=== PATIENT | female | born 1995 | race African-American/Black ===

== ENCOUNTER 2016-03-31 19:02 | Emergency (ER) | payer SELFPAY ==
--- NOTE | ~2016-03-31 | CT114 ---
[facility] A Service of [facility] & [facility] RADIOLOGY TEXT RESULTS PATIENT: JANINE SHANKAR LOCATION: [facility] : [birth year] UNIT #: [id number] AGE: [address]: Isamar Espinal MD SEX: F ORDER DR: [id number] [facility] [address]. [place], [place] [address] [id number] MR#: [id number] Acc #: [id number] NAME: JANINE SHANKAR : 1995 SEX: F STUDY DATE/TIME: 03/31/2016 19:25 UNIT: [facility] ROOM: STUDY DESCRIPTION: CT Soft Tissue Neck W Cont Attending Physician: Isamar Espinal M.D. Ordering Physician: Sherman Lucero M.D. Primary Care Physician: Primary Care Physician No MEDICAL IMAGING REPORT This report is preliminary unless electronic signature is present EXAM CT of the soft tissue neck with contrast performed on 03/31/2016. HISTORY 20-year-old female with neck pain and swollen throat and difficulty swallowing. Symptoms started this morning. TECHNIQUE This CT exam was performed with one or more of the following radiation dose reduction techniques: Automatic exposure control, adjustment of mA and/or kV according to patient size, and iterative reconstruction. FINDINGS The nasopharynx, oropharynx, oral cavity, hypopharynx and laryngeal structures appear within normal limits. No loss of the parapharyngeal fat is seen. Pharyngeal mucosal space is normal in appearance. No tonsillar abscess is seen. There are some aerated tonsillar crevices but no inflammatory change seen and no stones identified. The merchandising representative space, parotid space, carotid sheath, and submandibular region are all normal in appearance. Paranasal sinuses and mastoid air cells are clear. No middle ear opacity is seen. Temporomandibular joint is intact. No orbital lesions are identified. No epiglottic enlargement is seen. No prevertebral or retropharyngeal enlargement or inflammation is noted. The uvula is mildly prominent, but no attenuation abnormality is identified. IMPRESSION 1. Prominent uvula but no mass or fluid collection seen. A normal epiglottis is present. 2. No loss of the pharyngeal fat or development of a tonsillar abscess. 3. No adenopathy. 4. Normal nasopharynx, oropharynx and oral cavity. [facility] A Service of [facility] RADIOLOGY TEXT RESULTS PATIENT: JANINE SHANKAR LOCATION: [facility] #: [id number] : [birth year] UNIT #: [id number] AGE: [address]: Isamar Espinal MD SEX: F ORDER DR: Dictated by... John Ramirez M.D. THIS IS AN ELECTRONICALLY VERIFIED REPORT John Ramirez M.D. at 04/01/2016 5:11 PM MARINA/sharon TD: 03/31/2016 22:36 JOB #: [id number] MEDICAL IMAGING REPORT COPY
[2016-03-31 17:37] LABS: BASOPHIL% 0.6 % (0-2.5); EOSINOPHIL# 0.3 X10e3 (0-0.7); EOSINOPHIL% 4.3 % (0.0-7.0); HEMATOCRIT 38.8 % (35.0-45.0); HEMOGLOBIN 12.3 gm/dL (12.0-16.0); LYMPHOCYTE# 2.8 X10e3 (1.0-3.5); LYMPHOCYTE% 39.2 % (17.0-45.0); MEAN CELL VOLUME 81.5 FL (83-96); MEAN CORPUSCULAR HGB CONC 31.8 g/dL (30-36); MONOCYTE# 0.8 X10e3 (0-1.0); MONOCYTE% 11.9 % (3.0-12.0); NEUTROPHIL# 3.1 X10e3 (1.5-7.1); PLATELET COUNT 395 X10e3 (140-420); RED BLOOD COUNT 4.75 X10e (3.90-5.30); RED CELL DISTRIBUTION WIDTH 12.8 % (11.0-15.5)
[2016-03-31 17:41] LABS: DIFF IND NO
[2016-03-31 18:06] LABS: BLOOD UREA NITROGEN 7 mg/dL (9-23); CALCIUM SERUM 9.5 mg/dL (8.4-10.2); CARBON DIOXIDE 25 mmol/L (22-31); CHLORIDE 104 mmol/L (100-111); CREATININE SERUM 0.7 mg/dL (0.6-1.4); GLOM FILT RATE Estimated ABOVE60 mL/min (>60); GLUCOSE FASTING 95 mg/dL (70-110); POTASSIUM 3.9 mmol/L (3.5-5.1); SODIUM 139 mmol/L (135-145)
[~2016-03-31 19:02] MED LIST: ALBUTEROL17 GM INH; BENZONATATE PO; MOTRIN400 MG PO; ZITHROMAX PO
== END 2016-03-31 21:20 | disposition home or self-care (01) ==
LOC: CED 19:02
PROVIDERS: Emergency Medicine
DX: K12.2 Cellulitis and abscess of mouth (principal); F31.9 Bipolar disorder, unspecified; J45.909 Unspecified asthma, uncomplicated
CPT/HCPCS: 36415; 70491; 80048; 84703; 85025; 96374; 99284; J2930; Q9967